=== PATIENT | female | born 1970 | race Caucasian/White ===

== ENCOUNTER 2017-02-11 10:57 | Outpatient (CLI) ==
[2015-08-24 20:14] VITALS: BMI 52.4
[2017-02-11 13:14] LABS: BASOPHILS # (AUTO) 0.1 K/uL (0-0.2); BASOPHILS % (AUTO) 0.6 % (0.0-3.0); EOSINOPHILS # (AUTO) 0.3 K/ul (0.0-0.7); EOSINOPHILS % (AUTO) 3.7 % (0.0-7.0); HEMATOCRIT 41.8 % (37.0-47.0); HEMOGLOBIN 13.1 g/dl (12.0-16.0); IMMATURE GRANULOCYTE % (AUTO) 0.4 % (0.0-5.0); LYMPHOCYTES # (AUTO) 1.8 K/uL (0.60-3.4); MEAN CORPUSCULAR HEMOGLOBIN 28.5 pg (27.0-31.0); MEAN CORPUSCULAR HGB CONC 31.3 (31.8-35.4); MEAN CORPUSCULAR VOLUME 91.1 fl (81.0-99.0); MONOCYTES # (AUTO) 0.6 K/uL (0.4-2.0); MONOCYTES % (AUTO) 6.8 (0-10); NEUTROPHILS # (AUTO) 5.6 K/ul (2.0-6.9); NEUTROPHILS % (AUTO) 66.5; PLATELET COUNT 282 10^3/uL (140-440); RED BLOOD COUNT 4.59 10^6/ul (4.20-5.40); WHITE BLOOD COUNT 8.38 K/ul (4.6-10.2)
[2017-02-11 13:15] LABS: BILIRUBIN,URINE Negative (NEGATIVE); KETONES,URINE Negative (NEGATIVE); LEUKOCYTE ESTERASE ,URINE Negative (NEGATIVE); NITRITE,URINE Negative (NEGATIVE); PROTEIN,URINE Negative (NEGATIVE); URINE, BLOOD Negative (NEGATIVE)
[2017-02-11 13:21] LABS: ADD URINE MICROSCOPIC YES
[2017-02-11 13:36] LABS: BACTERIA,URINE TRACE (NOT PRESENT)
[2017-02-11 13:51] LABS: ALBUMIN 3.3 g/dL (3.4-5.0); ALBUMIN/GLOBULIN RATIO 0.77; BILIRUBIN,TOTAL 0.68 mg/dL (0.00-1.20); BUN/CREATININE RATIO 8.69; CALCIUM 10.2 mg/dL (8.2-10.2); CHOL/HDL RATIO 3.6 (4.5-5.5); CREATININE 0.69 mg/dL (0.60-1.30); TOTAL PROTEIN 7.6 g/dL (6.4-8.2)
== END 2017-02-11 10:58 | disposition home or self-care (01) ==
LOC: LAB 10:57
PROVIDERS: ATTEND Nurse Practitioner Family
DX: R31.9 Hematuria, unspecified (principal); E78.5 Hyperlipidemia, unspecified; E53.8 Deficiency of other specified B group vitamins; E28.2 Polycystic ovarian syndrome; E03.9 Hypothyroidism, unspecified
CPT/HCPCS: 36415; 80053; 80061; 81001; 84443; 85025

== ENCOUNTER 2017-02-25 15:19 | Outpatient (CLI) ==
[2015-08-24 20:14] VITALS: BMI 52.4
[2017-02-25 16:15] LABS: BILIRUBIN,URINE 1+ (NEGATIVE); KETONES,URINE Trace (NEGATIVE); LEUKOCYTE ESTERASE ,URINE Negative (NEGATIVE); NITRITE,URINE Positive (NEGATIVE); PROTEIN,URINE 1+ (NEGATIVE); URINE, BLOOD Negative (NEGATIVE)
[2017-02-25 16:25] LABS: ADD URINE MICROSCOPIC YES
[2017-02-25 16:26] LABS: BACTERIA,URINE TRACE (NOT PRESENT)
== END 2017-02-25 15:20 | disposition home or self-care (01) ==
LOC: LAB 15:19
PROVIDERS: ATTEND Nurse Practitioner Family
DX: R35.0 Frequency of micturition (principal)
CPT/HCPCS: 81001; 87086

== ENCOUNTER 2017-03-06 06:21 | Emergency (ER) ==
[2017-03-06 06:29] VITALS: TEMP 99.8; BMI 54.8
[2017-03-06] MEDS ORDERED: TORADOL IM STA (06:44)
--- NOTE | 2017-03-06 06:48 | ED.PDOC ---
General ED Provider: Dr. MARIXA GAMINO Chief Complaint: Knee Pain/Injury Stated Complaint: Patient states she has had a sore left knee for one month. She has been using a knee brace. over the past week and especially starting last night the pain has gotten worse. Now describes it as aching.Has difficulty walking or bending the knee due to pain. Denies any obvious trauma. Pain is aching and is generalzied alittle worse on the back. unable to take Nsaids or Aspirin due to severe Gerd despite being on PPIs Time Seen by Physician: 06:45 Mode of Arrival: Walk-In Information Source: Patient, Family Exam Limitations: No limitations Primary Care Provider: HUNTER ESCALERA Nursing and Triage Documentation Reviewed and Agree: Yes Musculoskeletal Complaint Exam - Knee Pain Complaint/Exam Mechanism of Injury: Reports: No known trauma Onset/Duration: 1 month worse over the last week. Symptoms Are: Worse Onset of Pain: Reports: Weeks (4) Initial Severity: Moderate Current Severity: Severe Location: Reports: Diffuse Character: Reports: Aching, Throbbing Alleviating: Reports: None Aggravating: Reports: Movement, Weight bearing, Prolonged standing, Stairs Associated Signs and Symptoms: Denies: Swelling, Redness, Bruising, Fever, Weakness, Numbness, Tingling Able to Bear Weight: Yes Related History: Denies: Similar episode, Occupational injury Septic Arthritis Risk Factors: Denies: Extremes of age, IV drug abuse, Endocarditis, Imunosuppressed, Preexisting joint disease, Prosthesis Gout Risk Factors: Reports: >40 years old, Hyperlipidemia, Obesity. Denies: Male, Diabetes, HTN, Renal Disease, Psoriasis, PVD Related Surgical History: Denies: Right Knee, Left Knee, Other Orthopedic Surgery Knee Findings: Present: Tenderness, Limited range of motion. Absent: Swelling, Ecchymosis, Abnormal contour, Rotation, Ligamentous instability, Laceration, Erythema, Warmth, Blisters, Other joint pain, Foreign body, Effusion Tenderness: Present: Joint Camila Test Positive: No Joey Test Positive: No Limited Range of Motion: Present: Flexion, Degrees (60) Differential Diagnoses: Bursitis, Tendonitis, Closed Fracture, Sprain, Strain Review of Systems - Review Of Systems Constitutional: Reports: No symptoms Eyes: Reports: No symptoms Ears, Nose, Mouth, Throat: Reports: No symptoms Respiratory: Reports: No symptoms Cardiac: Reports: No symptoms GI: Reports: No symptoms : Reports: No symptoms Musculoskeletal: Reports: Joint pain Skin: Reports: No symptoms Neurological: Reports: Anxiety Endocrine: Reports: No symptoms Hematologic/Lymphatic: Reports: No symptoms All Other Systems: Reviewed and Negative Past Medical History - Past Medical History Endocrine: Reports: Hypothyroid, Dyslipidemia Cardiovascular: Reports: None Respiratory: Reports: None Hematological: Reports: None Gastrointestinal: Reports: GERD Genitourinary: Reports: None Neuro/Psych: Reports: Anxiety, Depression Musculoskeletal: Reports: None Cancer: Reports: None Last Menstrual Period: 3 weeks - Surgical History General Surgical History: Reports: Unknown - Family History Family History: Reports: Unknown - Social History Smoking Status: Never smoker Hx Substance Use: No Alcohol Screening: None - Immunizations Tetanus Shot up to Date: Yes Physical Exam - Physical Exam Appearance: Obese Pain Distress: Severe Neck: Supple Respiratory: Airway patent, Breath sounds clear, Breath sounds equal Cardiovascular: RRR, Pulses normal, No rub Musculoskeletal: No edema, Limited ROM Skin: Warm, Dry Neurological: Sensation intact, Alert, Oriented Psychiatric: Anxious Interpretation - Radiology Interpretation Radiology Interpretation By: Radiologist Radiology Results: Negative Exam Interpreted: Other (knee x ray ) Re-Evaluation - Re-Evaluation Time of Re-Evaluation: 07:38 Status: Improved Pain Level: 151/90 Critical Care Note - Critical Care Note Total Time (mins): 0 Course - Course Orders, Labs, Meds: Orders Category Date Time Status NIDA [ED NIDA WRAP] .ONCE EMERGENCY 03/06/17 06:45 Active Dexamethasone 4 mg/ml Inj [Decadron 4 mg/ml Sdv] MEDS 03/06/17 06:55 Discontinued 8 mg IM ONCE STA Ketorolac Tromethamine [Toradol] MEDS 03/06/17 06:44 Discontinued 60 mg IM ONCE STA KNEE, LEFT 4 VIEWS Stat RADS 03/06/17 06:45 Completed Medications Discontinued Medications Generic Name Dose Route Start Last Admin Trade Name Freq PRN Reason Stop Dose Admin Dexamethasone Sodium Phosphate 8 mg 03/06/17 06:55 03/06/17 07:14 Decadron 4 Mg/Ml Sdv IM 03/06/17 06:56 8 mg ONCE STA Administration Ketorolac Tromethamine 60 mg 03/06/17 06:44 03/06/17 06:53 Toradol IM 03/06/17 06:45 60 mg ONCE STA Administration Vital Signs: Temp Pulse Resp BP Pulse Ox 03/06/17 07:36 151/90 H 03/06/17 06:21 99.8 F H 97 H 20 176/117 H 96 Departure - Departure Time of Disposition: 07:38 Disposition: HOME SELF-CARE Discharge Problem: Knee pain Instructions: Knee Pain (ED), Arthralgia (ED) Condition: Fair Pt referred to PMD for follow-up: Yes Additional Instructions: Follow up with the clinic for Orthopedic referral and for an MRI Take medications as prescribed Use nida wrap for stability. Prescriptions: Methylprednisolone [Medrol Dosepak] 4 mg PO DIRECTED #1 pkg Tramadol HCl [Ultram] 50 mg PO Q6H PRN #25 tablet PRN Reason: Severe Pain Allergies/Adverse Reactions: Allergies bee venom protein (honey bee) Adverse Reaction (Verified 03/06/17 06:28) citalopram hydrobromide [From Celexa] Adverse Reaction (Verified 03/06/17 06:28) Home Medications: Ambulatory Orders Iron 18 mg PO DAILY 04/24/13 Metformin HCl [Glucophage] 500 mg PO BIDWM 04/24/13 Omeprazole Magnesium [Prilosec Otc] 20 mg PO DAILY 04/24/13 Cranberry Extract [Cranberry] 200 mg PO BID 01/26/17 Vitamin B Complex 1 each PO DAILY 01/26/17 Methylprednisolone [Medrol Dosepak] 4 mg PO DIRECTED #1 pkg 03/06/17 Tramadol HCl [Ultram] 50 mg PO Q6H PRN #25 tablet 03/06/17 Disposition Discussed With: Patient
[2017-03-06] MEDS ORDERED: DECADRON 4 MG/ML SDV IM STA (06:55)
--- NOTE | 2017-03-06 07:20 | DI ---
EXAM: Four views of the left knee HISTORY: Knee pain no trauma COMPARISON: None FINDINGS: There is no acute fracture or dislocation. Joint spaces and alignment are maintained. Devante y tricompartmental tiny osteophytes are present. The patella is seated within the trochlear groove. There is no sizeable knee joint effusion. Soft tissues are unremarkable. IMPRESSION: No acute osseous abnormality of the knee. Early minimal left knee osteoarthritis.
[2017-03-06 07:37] VITALS: BP 151/90
== END 2017-03-06 07:47 | disposition home or self-care (01) ==
LOC: ED 06:21
DX: M25.562 Pain in left knee (principal)
CPT/HCPCS: 96372; 99283

== ENCOUNTER 2017-06-07 12:57 | Outpatient (CLI) ==
[2017-06-07 13:22] LABS: BASOPHILS # (AUTO) 0.1 K/uL (0-0.2); BASOPHILS % (AUTO) 0.7 % (0.0-3.0); EOSINOPHILS # (AUTO) 0.4 K/ul (0.0-0.7); EOSINOPHILS % (AUTO) 4.6 % (0.0-7.0); HEMATOCRIT 42.1 % (37.0-47.0); HEMOGLOBIN 13.5 g/dl (12.0-16.0); IMMATURE GRANULOCYTE % (AUTO) 0.5 % (0.0-5.0); LYMPHOCYTES # (AUTO) 2.5 K/uL (0.60-3.4); LYMPHOCYTES % (AUTO) 28.5 (10.0-50.0); MEAN CORPUSCULAR HEMOGLOBIN 29.1 pg (27.0-31.0); MEAN CORPUSCULAR HGB CONC 32.1 (31.8-35.4); MEAN CORPUSCULAR VOLUME 90.7 fl (81.0-99.0); MONOCYTES # (AUTO) 0.8 K/uL (0.4-2.0); MONOCYTES % (AUTO) 8.6 (0-10); NEUTROPHILS # (AUTO) 5.1 K/ul (2.0-6.9); NEUTROPHILS % (AUTO) 57.1; PLATELET COUNT 271 10^3/uL (140-440); RED BLOOD COUNT 4.64 10^6/ul (4.20-5.40); WHITE BLOOD COUNT 8.87 K/ul (4.6-10.2)
[2017-06-07 14:02] LABS: ALBUMIN 3.3 g/dL (3.4-5.0); ALBUMIN/GLOBULIN RATIO 0.8; BILIRUBIN,TOTAL 0.35 mg/dL (0.00-1.20); BUN/CREATININE RATIO 9.21; CALCIUM 9.7 mg/dL (8.2-10.2); CHOL/HDL RATIO 3.4 (4.5-5.5); CREATININE 0.76 mg/dL (0.60-1.30); TOTAL PROTEIN 7.4 g/dL (6.4-8.2)
== END 2017-06-07 12:58 | disposition home or self-care (01) ==
LOC: LAB 12:57
PROVIDERS: ATTEND Nurse Practitioner Family
DX: E53.8 Deficiency of other specified B group vitamins (principal); E03.9 Hypothyroidism, unspecified; E78.5 Hyperlipidemia, unspecified; E28.2 Polycystic ovarian syndrome
CPT/HCPCS: 36415; 80053; 80061; 83036; 84439; 84443; 85025

== ENCOUNTER 2018-05-04 18:25 | Outpatient (CLI) | END 2018-05-04 18:26 | disposition home or self-care (01) | LOC: FCC-LAB 18:25 | PROVIDERS: ATTEND Family Medicine | DX: J02.9 Acute pharyngitis, unspecified (principal) | CPT/HCPCS: 87651 ==

== ENCOUNTER 2018-09-23 20:13 | Emergency (ER) ==
[2018-09-23 20:25] VITALS: BP 176/94; TEMP 100.3; BMI 61.0
--- NOTE | 2018-09-23 20:58 | ED.PDOC ---
General ED Provider: Dr. DAFNE FLANAGAN Chief Complaint: Urinary Problem Stated Complaint: few days of dysuria,frequency and chills.Preceeded by yeast infection.Denies any external skin or mucosal active yest or other process.Denies vag discharge. Time Seen by Physician: 20:15 Mode of Arrival: Walk-In Information Source: Patient Exam Limitations: No limitations Primary Care Provider: MARINA MEEKS Nursing and Triage Documentation Reviewed and Agree: Yes Does patient meet sepsis criteria?: No System Inflammatory Response Syndrome: Not Applicable Sepsis Protocol: For patient's 13 years and over: Temp is 96.8 and below OR 101 and greater Pulse >90 BPM Resp >20/minute Acutely Altered Mental Status Are patient's symptoms suggestive of a new infection, such as: -Pneumonia -Skin, Soft Tissue -Endocarditis -UTI -Bone, Joint Infection -Implantable Device -Acute Abdominal Infection -Wound Infection -Meningitis -Blood Stream Catheter Infection -Unknown Complaint Exam - UTI Female Complaint/Exam Onset/Duration: few days.Last iuse of antibiotics several month ago/more than 3/ . Symptoms Are: Still present Timing: Intermittent Initial Severity: Moderate Current Severity: Mild Location of Pain: Reports: Suprapubic Associated Signs and Symptoms: Reports: Chills Related History: Reports: Similar episode Related Surgical History: Reports: None CVA Tenderness: No Suprapubic Tenderness: Yes Differential Diagnoses: Bladder Dysfunction, Cystitis, Pyelonephritis, Other Review of Systems - Review Of Systems Constitutional: Reports: Chills Eyes: Reports: No symptoms Ears, Nose, Mouth, Throat: Reports: No symptoms Respiratory: Reports: No symptoms Cardiac: Reports: No symptoms GI: Reports: No symptoms : Reports: Burning, Dysuria, Frequency Musculoskeletal: Reports: No symptoms Skin: Reports: No symptoms Neurological: Reports: No symptoms Endocrine: Reports: No symptoms Hematologic/Lymphatic: Reports: No symptoms All Other Systems: Reviewed and Negative Past Medical History - Past Medical History Endocrine: Reports: Hypothyroid, Dyslipidemia Cardiovascular: Reports: None Respiratory: Reports: None Hematological: Reports: None Gastrointestinal: Reports: GERD Genitourinary: Reports: None Neuro/Psych: Reports: Anxiety, Depression Musculoskeletal: Reports: None Cancer: Reports: None Last Menstrual Period: 4 WEEKS AGO - Surgical History General Surgical History: Reports: Unknown - Family History Family History: Reports: Unknown - Social History Smoking Status: Never smoker Hx Substance Use: No Alcohol Screening: None - Immunizations Tetanus Shot up to Date: Yes Physical Exam - Physical Exam Appearance: Well-appearing, Obese Ill-appearing: None Pain Distress: Mild Eyes: FER ENT: Ears normal Neck: Supple Respiratory: Airway patent Cardiovascular: RRR, Tachycardia GI/: Soft Musculoskeletal: Normal strength Skin: Warm Neurological: Sensation intact Critical Care Note - Critical Care Note Total Time (mins): 0 Course - Course Hematology/Chemistry: 09/23/18 21:27 Orders, Labs, Meds: Lab Review 09/23/18 09/23/18 09/23/18 20:50 21:27 21:27 WBC 12.23 H RBC 4.48 Hgb 12.9 Hct 41.1 MCV 91.7 MCH 28.8 MCHC 31.4 L RDW Coeff of Gracy 13.8 Plt Count 239 Immature Gran % (Auto) 0.4 Neut % (Auto) 71.0 Lymph % (Auto) 18.7 [place] % (Auto) 6.9 Eos % (Auto) 2.5 Baso % (Auto) 0.5 Immature Gran # (Auto) 0.1 Neut # (Auto) 8.7 H Lymph # (Auto) 2.3 [place] # (Auto) 0.8 Eos # (Auto) 0.3 Baso # (Auto) 0.1 Lactic Acid 1.91 Urine Color [place] Urine Clarity Clear Urine pH 5.0 Ur Specific [place] 1.020 Urine Protein 2+ Urine Glucose (UA) Trace Urine Ketones 1+ Urine Blood Negative Urine Nitrite Positive Urine Bilirubin 1+ Urine Urobilinogen 2.0 Ur Leukocyte Esterase 3+ Urine Microscopic RBC 0-2 Urine Microscopic WBC 0-2 Ur Squamous Epith Cells 2-5 Urine Bacteria Trace Orders Category Date Time Status CBC W/ AUTO DIFF Stat LAB 09/23/18 21:27 Completed LACTIC ACID Stat LAB 09/23/18 21:27 Completed URINALYSIS C & S IF INDICATED Stat LAB 09/23/18 20:50 Completed Ceftriaxone Sodium [Rocephin] MEDS 09/23/18 21:37 Discontinued 1 gm IM ONCE STA Lidocaine HCl/Pf [Lidocaine HCl 1% Sdv] MEDS 09/23/18 21:37 Discontinued 2.1 ml IM ONCE STA Medications Discontinued Medications Generic Name Dose Route Start Last Admin Trade Name Freq PRN Reason Stop Dose Admin Ceftriaxone Sodium 1 gm 09/23/18 21:37 09/23/18 21:55 Rocephin IM 09/23/18 21:38 1 gm ONCE STA Administration Lidocaine HCl 2.1 ml 09/23/18 21:37 09/23/18 21:56 Lidocaine Hcl 1% Sdv IM 09/23/18 21:38 2.1 ml ONCE STA Administration Vital Signs: Temp Pulse Resp BP Pulse Ox 09/23/18 20:13 100.3 F H 91 H 24 176/94 H 95 Departure - Departure Time of Disposition: 22:05 Disposition: HOME SELF-CARE Discharge Problem: Urinary tract infection Condition: Good Pt referred to PMD for follow-up: Yes (follow PCO of choice prn) IPMP verified?: No Allergies/Adverse Reactions: Allergies bee venom protein (honey bee) Adverse Reaction (Verified 03/06/17 06:28) citalopram hydrobromide [From Celexa] Adverse Reaction (Verified 03/06/17 06:28) WASPS Adverse Reaction (Uncoded 09/23/18 20:24) Home Medications: Ambulatory Orders Metformin HCl [Glucophage] 500 mg PO BIDWM 04/24/13 Omeprazole Magnesium [Prilosec Otc] 20 mg PO DAILY 04/24/13 Cranberry Extract [Cranberry] 200 mg PO BID 01/26/17 Albuterol Sulfate [Proair Hfa] 2 puff IH Q4H PRN 09/23/18 Calcium Carb/Magnesium Oxid/D3 [Calcium Magnesium + D Tablet] 1 each PO DAILY Cholecalciferol (Vitamin D3) [Vitamin D3] 5,000 unit PO DAILY 09/23/18 Cranberry Conc/Ascorbic Acid [Cvs Super Cranberry Softgel] 1 each PO BID Ferrous Sulfate [Iron] 325 mg PO DAILY 09/23/18 Folic Acid/Vit B Complex and C [Super B-Complex Folic-Vit C Tb] 400 mcg PO DAILY 09/23/18 Disposition Discussed With: Patient
[2018-09-23] MEDS ORDERED: ROCEPHIN IM STA (21:37)
[2018-09-23] MEDS ORDERED: LIDOCAINE HCL 1% SDV IM STA (21:37)
== END 2018-09-23 22:22 | disposition home or self-care (01) ==
LOC: ED 20:13
DX: N39.0 Urinary tract infection, site not specified (principal); N30.90 Cystitis, unspecified without hematuria; E03.9 Hypothyroidism, unspecified; E78.5 Hyperlipidemia, unspecified; R00.0 Tachycardia, unspecified; Z79.899 Other long term (current) drug therapy
CPT/HCPCS: 36415; 81001; 83605; 85025; 96372; 99283

== ENCOUNTER 2018-10-12 11:33 | Outpatient (CLI) | END 2018-10-12 11:34 | disposition home or self-care (01) | LOC: RHC-LAB 11:33 → FCC-LAB 11:34 | PROVIDERS: ATTEND Family Medicine | DX: E78.5 Hyperlipidemia, unspecified (principal); E03.9 Hypothyroidism, unspecified; I10 Essential (primary) hypertension; E66.9 Obesity, unspecified; E55.9 Vitamin D deficiency, unspecified | CPT/HCPCS: 36415; 80053; 80061; 82306; 84443; 85025 ==

== ENCOUNTER 2018-12-12 17:03 | Outpatient (CLI) | END 2018-12-12 17:04 | disposition home or self-care (01) | LOC: RHC-LAB 17:03 → FCC-LAB 17:04 | PROVIDERS: ATTEND Family Medicine | DX: R73.09 Other abnormal glucose (principal); D53.8 Other specified nutritional anemias | CPT/HCPCS: 36415; 82607; 83037 ==

== ENCOUNTER 2019-06-13 05:49 | Observation (INO) ==
[2019-06-13] MEDS ORDERED: DUONEB NEB STA (06:25)
--- NOTE | 2019-06-13 06:37 | ED.PDOC ---
General <MARIXA GAMINO MD - Last Filed: 07/15/19 06:13> ED Provider: Dr. MARIXA GAMINO Chief Complaint: Cough Stated Complaint: Patient comes to the ER with a one week history of cough. States feels like when she has bronchitis Every year. Has a history of asthma. Denies any Smoking. Has pain on the chest wall from coughing. Time Seen by Physician: 06:20 Mode of Arrival: Walk-In Information Source: Patient Primary Care Provider: MARINA MEEKS MD Nursing and Triage Documentation Reviewed and Agree: Yes Does patient meet sepsis criteria?: No System Inflammatory Response Syndrome: Not Applicable Sepsis Protocol: For patient's 13 years and over: Temp is 96.8 and below OR 101 and greater Pulse >90 BPM Resp >20/minute Acutely Altered Mental Status Are patient's symptoms suggestive of a new infection, such as: -Pneumonia -Skin, Soft Tissue -Endocarditis -UTI -Bone, Joint Infection -Implantable Device -Acute Abdominal Infection -Wound Infection -Meningitis -Blood Stream Catheter Infection -Unknown Review of Systems <MARIXA GAMINO MD - Last Filed: 07/15/19 06:13> Review Of Systems Constitutional: Reports No symptoms Eyes: Reports No symptoms Ears, Nose, Mouth, Throat: Reports No symptoms Respiratory: Reports Cough, Short of air and Wheezing Cardiac: Reports Chest pain (with cough only ) GI: Reports No symptoms : Reports No symptoms Musculoskeletal: Reports No symptoms Skin: Reports No symptoms Neurological: Reports No symptoms Endocrine: Reports No symptoms Hematologic/Lymphatic: Reports No symptoms All Other Systems: Reviewed and Negative PFSH <MARIXA GAMINO MD - Last Filed: 07/15/19 06:13> Medical History (Updated 06/13/19 @ 11:24 by DAVIN OSCAR RN) Asthma (Acute) Bronchitis (Acute) Gastroesophageal reflux disease Hyperlipidemia Hypothyroidism Polycystic ovaries Sleep apnea Family History (Updated 06/13/19 @ 11:28 by DAVIN OSCAR RN) Mother Depression Hypertension Father Depression Grandfather/Grandmother Chronic mental illness Depression PATERNAL GRANDMOTHER Cancer of lung Other Bipolar 1 disorder Polycystic ovarian disease Sleep apnea Suicide Social History (Updated 06/13/19 @ 11:30 by DAVIN OSCAR RN) Smoking and tobacco status: Unknown if ever smoked Passive smoking exposure: No Female Reproductive History Menstrual Hx Hysterectomy: No Hx Tubal Ligation: No Physical Exam <MARIXA GAMINO MD - Last Filed: 07/15/19 06:13> Physical Exam Appearance: Obese Ill-appearing: Moderate Pain Distress: Mild Eyes: FER, EOMI and Conjunctiva clear ENT: Ears normal and Nose normal Neck: Supple Respiratory: Wheezes Cardiovascular: RRR, Pulses normal and No rub Musculoskeletal: Normal strength and ROM intact Skin: Warm and Dry Neurological: Sensation intact, Motor intact, Alert and Oriented Psychiatric: Anxious <VALERIO MILLS MD - Last Filed: 06/13/19 10:32> Physical Exam GI/: Soft Interpretation <MARIXA GAMINO MD - Last Filed: 07/15/19 06:13> Scientific Writer Rate: Normal Rhythm: Sinus EKG Interpretation Time of EKG #1: 06:47 Rate: Normal Rhythm: Sinus Ectopy: None Kennard: NL Interpretation: unable to determine anterior infarct <VALERIO MILLS MD - Last Filed: 06/13/19 10:32> Re-Evaluation Time of Re-Evaluation: 07:00 Status: Improved Vital Signs Stable: Yes Pain Level: 0 Appearance: NAD Lungs: Clear Skin: Warm and Dry Neuro: Alert and Oriented X3 CV: RRR Additional Comments: no resp, issues pt comfortable Re-Evaluation Time of Re-Evaluation: 10:30 Status: Improved Vital Signs Stable: Yes Pain Level: 0 Appearance: NAD Skin: Warm and Dry Neuro: Alert and Oriented X3 CV: RRR <VALERIO MILLS MD - Last Filed: 06/13/19 10:32> Case Discussed Physician Notified: [email or web address] Time of Notification: 10:31 (admitt) Critical Care Note <MARIXA GAMINO MD - Last Filed: 07/15/19 06:13> Critical Care Note Total Time (mins): 30 Course <MARIXA GAMINO MD - Last Filed: 07/15/19 06:13> Course Hematology/Chemistry: 06/15/19 05:04 06/15/19 05:04 Orders, Labs, Meds: Lab Review 06/13/19 06/13/19 06/13/19 06:25 06:40 06:40 WBC 13.50 H RBC 4.47 Hgb 13.0 Hct 41.8 MCV 93.5 MCH 29.1 MCHC 31.1 L RDW Coeff of Gracy 14.0 Plt Count 333 Immature Gran % (Auto) 0.7 Neut % (Auto) 65.8 Lymph % (Auto) 20.0 [place] % (Auto) 7.4 Eos % (Auto) 5.4 Baso % (Auto) 0.7 Immature Gran # (Auto) 0.1 Neut # (Auto) 8.9 H Lymph # (Auto) 2.7 [place] # (Auto) 1.0 Eos # (Auto) 0.7 Baso # (Auto) 0.1 Puncture Site L brach O2 Saturation 88.0 L ABG pH 7.463 H ABG pCO2 38.0 ABG pO2 51.0 L* ABG HCO3 27.2 H ABG Total CO2 28 ABG Base Excess 3 H [place] Test + FiO2 % 21.0 Sodium 136.9 Potassium 3.78 Chloride 97.5 L Carbon Dioxide 32.2 H Anion Gap 10.98 BUN 9.9 Creatinine 0.90 Estimated GFR (MDRD) 67.00 BUN/Creatinine Ratio 11.00 Glucose 146.4 H Insulin Level Lactic Acid Calcium 9.68 Total Bilirubin 0.57 AST 23.0 ALT 16.7 Alkaline Phosphatase 116.4 Total Protein 8.06 Albumin 4.10 Globulin 3.96 Albumin/Globulin Ratio 1.03 Procalcitonin Influenza Type A Ab Influenza Type B Ab 06/13/19 06/13/19 06/13/19 06:40 06:40 06:40 WBC RBC Hgb Hct MCV MCH MCHC RDW Coeff of Gracy Plt Count Immature Gran % (Auto) Neut % (Auto) Lymph % (Auto) [place] % (Auto) Eos % (Auto) Baso % (Auto) Immature Gran # (Auto) Neut # (Auto) Lymph # (Auto) [place] # (Auto) Eos # (Auto) Baso # (Auto) Puncture Site O2 Saturation ABG pH ABG pCO2 ABG pO2 ABG HCO3 ABG Total CO2 ABG Base Excess [place] Test FiO2 % Sodium Potassium Chloride Carbon Dioxide Anion Gap BUN Creatinine Estimated GFR (MDRD) BUN/Creatinine Ratio Glucose Insulin Level 65.8 H Lactic Acid 2.09 Calcium Total Bilirubin AST ALT Alkaline Phosphatase Total Protein Albumin Globulin Albumin/Globulin Ratio Procalcitonin < 0.05 Influenza Type A Ab Influenza Type B Ab 06/13/19 06:40 WBC RBC Hgb Hct MCV MCH MCHC RDW Coeff of Gracy Plt Count Immature Gran % (Auto) Neut % (Auto) Lymph % (Auto) [place] % (Auto) Eos % (Auto) Baso % (Auto) Immature Gran # (Auto) Neut # (Auto) Lymph # (Auto) [place] # (Auto) Eos # (Auto) Baso # (Auto) Puncture Site O2 Saturation ABG pH ABG pCO2 ABG pO2 ABG HCO3 ABG Total CO2 ABG Base Excess [place] Test FiO2 % Sodium Potassium Chloride Carbon Dioxide Anion Gap BUN Creatinine Estimated GFR (MDRD) BUN/Creatinine Ratio Glucose Insulin Level Lactic Acid Calcium Total Bilirubin AST ALT Alkaline Phosphatase Total Protein Albumin Globulin Albumin/Globulin Ratio Procalcitonin Influenza Type A Ab 1:8 H Influenza Type B Ab 1:8 H Orders Category Date Time Status ADMIT OBSERVATION [PLACE PATIENT OBSERVATION] .TO ADMISSION 06/13/19 10:41 Active MEDSURG (MONITORED BED) ABG DRAW REQUEST Stat CARDIO 06/13/19 06:25 Completed EKG-(ED ONLY) Stat CARDIO 06/13/19 06:44 Completed NEBULIZER TREATMENT Stat CARDIO 06/13/19 06:26 Completed ACTIVITY .BR with BRP CARE 06/13/19 10:36 Active BLOOD GLUCOSE MONITORING ACHS CARE 06/13/19 10:36 Active GIVE HS SNACK 2100 CARE 06/13/19 10:38 Active INTAKE & OUTPUT Q8HR CARE 06/13/19 10:37 Active NPO REMINDER: IMAGING ONCE CARE 06/13/19 07:45 Completed TELEMETRY MONITORING TELE CARE 06/13/19 10:41 Active VITAL SIGNS Q4HR CARE 06/13/19 10:36 Active ADA 1800 J LUIS. DIET DIETARY 06/13/19 Lunch Completed HS SNACK DIETARY 06/13/19 Dinner Completed ED APPLY O2 .ONCE EMERGENCY 06/13/19 06:26 Completed ED IV/MEDIPORT/POWERPORT .ONCE EMERGENCY 06/13/19 06:25 Active ABG Stat LAB 06/13/19 06:25 Completed BLOOD CULTURE (ED ONLY) Stat LAB 06/13/19 06:40 Completed CBC W/ AUTO DIFF DAILY@0600 LAB 06/14/19 05:45 Completed CBC W/ AUTO DIFF DAILY@0600 LAB 06/15/19 05:04 Completed CBC W/ AUTO DIFF Stat LAB 06/13/19 06:40 Completed CMP [COMPREHENSIVE METABOLIC PANEL] Stat LAB 06/13/19 06:40 Completed COMPREHENSIVE METABOLIC PANEL DAILY@0600 LAB 06/14/19 05:45 Completed COMPREHENSIVE METABOLIC PANEL DAILY@0600 LAB 06/15/19 05:04 Completed LACTIC ACID Stat LAB 06/13/19 06:40 Completed PROCALCITONIN Stat LAB 06/13/19 06:40 Completed 0.9 % Sodium Chloride [Saline Flush] MEDS 06/13/19 06:25 Discontinued 1 syr IVF PRN PRN Albuterol Sulfate [Proair Hfa] MEDS 06/13/19 10:33 Discontinued 2 puff IH Q4H PRN Ceftriaxone/D5w 1 gm Premix [Rocephin 1 gm/50 ml D5w] MEDS 06/13/19 11:30 Discontinued 1 gm in 50 ml IV DAILY Gabapentin [Neurontin] MEDS 06/13/19 15:00 Discontinued 300 mg PO TID Guaifenesin [Mucinex] MEDS 06/13/19 10:33 Discontinued 1,200 mg PO BID PRN Ipratropium/Albuterol Neb [Duoneb] MEDS 06/13/19 06:25 Discontinued 3 ml NEB ONCE STA Lisinopril [Zestril] MEDS 06/14/19 09:00 Discontinued 5 mg PO DAILY Methylprednisolone Sod Succ/Pf [Solu-Medrol 125 mg] MEDS 06/13/19 06:45 Discontinued 125 mg IVP ONCE STA Oxybutynin Chloride [Ditropan Xl] MEDS 06/13/19 11:00 Discontinued 10 mg PO DAILY Paroxetine HCl [Paxil] MEDS 06/14/19 09:00 Discontinued 40 mg PO DAILY Simvastatin [Zocor] MEDS 06/14/19 17:00 Discontinued 40 mg PO QPM Sodium Chloride 0.9% [Sodium Chloride] 1,000 ml MEDS 06/13/19 11:00 Discontinued IV 75 mls/hr Sodium Chloride 0.9% [Sodium Chloride] 1,000 ml MEDS 06/13/19 07:46 Discontinued IV BOLUS CHEST, 2 VIEWS PA & LAT Stat RADS 06/13/19 06:[address] CHEST PE PROTOCOL Stat RADS 06/13/19 07:45 Completed Medications Discontinued Medications Generic Name Dose Route Start Last Admin Trade Name Freq PRN Reason Stop Dose Admin Albuterol Sulfate 2 puff 06/13/19 10:33 Proair Hfa IH Q4H PRN Bronchospasm Albuterol/Ipratropium 3 ml 06/13/19 06:25 06/13/19 06:51 Duoneb NEB 06/13/19 06:26 3 ml ONCE STA Administration Budesonide 0.5 mg 06/14/19 18:00 06/17/19 04:50 Pulmicort 0.5 Mg/2 Ml NEB 0.5 mg RTBID ARSLAN Administration Ferrous Sulfate 324 mg 06/14/19 06:30 06/17/19 06:06 Ferrous Sulfate PO 324 mg QDAC ARSLAN Administration Gabapentin 300 mg 06/13/19 15:00 06/17/19 08:42 Neurontin PO 300 mg TID ARSLAN Administration Guaifenesin 1,200 mg 06/13/19 10:33 Mucinex PO BID PRN Cough Sodium Chloride 1,000 mls @ 250 mls/hr 06/13/19 07:46 06/13/19 08:18 Sodium Chloride IV 06/13/19 11:45 250 mls/hr BOLUS STA Administration Sodium Chloride 1,000 mls @ 75 mls/hr 06/13/19 11:00 06/16/19 19:40 Sodium Chloride IV Not Given .[id number] ARSLAN CEFTRIAXONE/D5W 1 GM PREMIX 1 gm in 50 mls @ 75 mls/hr 06/13/19 11:30 06/16/19 09:41 Rocephin 1 Gm/50 Ml D5w IV 06/16/19 11:29 75 mls/hr DAILY ARSLAN Administration CEFTRIAXONE/D5W 1 GM PREMIX 1 gm in 50 mls @ 75 mls/hr 06/17/19 09:00 06/17/19 08:42 Rocephin 1 Gm/50 Ml D5w IV 06/20/19 08:59 75 mls/hr DAILY ARSLAN Administration Levothyroxine Sodium 300 mcg 06/14/19 06:30 06/17/19 06:12 Synthroid PO 300 mcg QDAC ARSLAN Administration Lisinopril 5 mg 06/14/19 09:00 06/17/19 08:42 Zestril PO 5 mg DAILY ARSLAN Administration Methylprednisolone Sodium Succinate 125 mg 06/13/19 06:45 06/13/19 07:22 Solu-Medrol 125 Mg IVP 06/13/19 06:46 125 mg ONCE STA Administration Omeprazole 20 mg 06/14/19 06:30 06/17/19 06:06 Prilosec PO 20 mg QDAC ARSLAN Administration Oxybutynin Chloride 10 mg 06/13/19 11:00 06/13/19 11:47 Ditropan Xl PO 10 mg DAILY ARSLAN Administration Oxybutynin Chloride 10 mg 06/14/19 21:00 06/16/19 20:38 Ditropan Xl PO 10 mg BEDTIME ARSLAN Administration Paroxetine HCl 40 mg 06/14/19 09:00 Paxil PO DAILY ARSLAN Paroxetine HCl 40 mg 06/14/19 01:30 06/16/19 20:38 Paxil PO 40 mg BEDTIME ARSLAN Administration Simvastatin 40 mg 06/14/19 17:00 Zocor PO QPM ARSLAN Simvastatin 40 mg 06/14/19 21:00 06/16/19 20:38 Zocor PO 40 mg BEDTIME ARSLAN Administration Sodium Chloride 1 syr 06/13/19 06:25 06/13/19 07:21 Saline Flush IVF 1 syr PRN PRN Administration To flush IV Sodium Chloride 1 syr 06/15/19 05:45 06/17/19 06:06 Saline Flush IVF 1 syr Q8HR ARSLAN Administration Vital Signs: Temp Pulse Resp BP Pulse Ox 06/13/19 05:50 99.4 F 98 H 28 H 160/97 H 90 L <VALERIO MILLS MD - Last Filed: 06/13/19 10:32> Course Orders, Labs, Meds: Lab Review 06/13/19 06/13/19 06/13/19 06:25 06:40 06:40 WBC 13.50 H RBC 4.47 Hgb 13.0 Hct 41.8 MCV 93.5 MCH 29.1 MCHC 31.1 L RDW Coeff of Gracy 14.0 Plt Count 333 Immature Gran % (Auto) 0.7 Neut % (Auto) 65.8 Lymph % (Auto) 20.0 [place] % (Auto) 7.4 Eos % (Auto) 5.4 Baso % (Auto) 0.7 Immature Gran # (Auto) 0.1 Neut # (Auto) 8.9 H Lymph # (Auto) 2.7 [place] # (Auto) 1.0 Eos # (Auto) 0.7 Baso # (Auto) 0.1 Puncture Site L brach O2 Saturation 88.0 L ABG pH 7.463 H ABG pCO2 38.0 ABG pO2 51.0 L* ABG HCO3 27.2 H ABG Total CO2 28 ABG Base Excess 3 H [place] Test + FiO2 % 21.0 Sodium 136.9 Potassium 3.78 Chloride 97.5 L Carbon Dioxide 32.2 H Anion Gap 10.98 BUN 9.9 Creatinine 0.90 Estimated GFR (MDRD) 67.00 BUN/Creatinine Ratio 11.00 Glucose 146.4 H Insulin Level Lactic Acid Calcium 9.68 Total Bilirubin 0.57 AST 23.0 ALT 16.7 Alkaline Phosphatase 116.4 Total Protein 8.06 Albumin 4.10 Globulin 3.96 Albumin/Globulin Ratio 1.03 Procalcitonin Influenza Type A Ab Influenza Type B Ab 06/13/19 06/13/19 06/13/19 06:40 06:40 06:40 WBC RBC Hgb Hct MCV MCH MCHC RDW Coeff of Gracy Plt Count Immature Gran % (Auto) Neut % (Auto) Lymph % (Auto) [place] % (Auto) Eos % (Auto) Baso % (Auto) Immature Gran # (Auto) Neut # (Auto) Lymph # (Auto) [place] # (Auto) Eos # (Auto) Baso # (Auto) Puncture Site O2 Saturation ABG pH ABG pCO2 ABG pO2 ABG HCO3 ABG Total CO2 ABG Base Excess [place] Test FiO2 % Sodium Potassium Chloride Carbon Dioxide Anion Gap BUN Creatinine Estimated GFR (MDRD) BUN/Creatinine Ratio Glucose Insulin Level 65.8 H Lactic Acid 2.09 Calcium Total Bilirubin AST ALT Alkaline Phosphatase Total Protein Albumin Globulin Albumin/Globulin Ratio Procalcitonin < 0.05 Influenza Type A Ab Influenza Type B Ab 06/13/19 06:40 WBC RBC Hgb Hct MCV MCH MCHC RDW Coeff of Gracy Plt Count Immature Gran % (Auto) Neut % (Auto) Lymph % (Auto) [place] % (Auto) Eos % (Auto) Baso % (Auto) Immature Gran # (Auto) Neut # (Auto) Lymph # (Auto) [place] # (Auto) Eos # (Auto) Baso # (Auto) Puncture Site O2 Saturation ABG pH ABG pCO2 ABG pO2 ABG HCO3 ABG Total CO2 ABG Base Excess [place] Test FiO2 % Sodium Potassium Chloride Carbon Dioxide Anion Gap BUN Creatinine Estimated GFR (MDRD) BUN/Creatinine Ratio Glucose Insulin Level Lactic Acid Calcium Total Bilirubin AST ALT Alkaline Phosphatase Total Protein Albumin Globulin Albumin/Globulin Ratio Procalcitonin Influenza Type A Ab 1:8 H Influenza Type B Ab 1:8 H Orders Category Date Time Status ADMIT OBSERVATION [PLACE PATIENT OBSERVATION] .TO ADMISSION 06/13/19 10:41 Active MEDSURG (MONITORED BED) ABG DRAW REQUEST Stat CARDIO 06/13/19 06:25 Completed EKG-(ED ONLY) Stat CARDIO 06/13/19 06:44 Completed NEBULIZER TREATMENT Stat CARDIO 06/13/19 06:26 Completed ACTIVITY .BR with BRP CARE 06/13/19 10:36 Active BLOOD GLUCOSE MONITORING ACHS CARE 06/13/19 10:36 Active GIVE HS SNACK 2100 CARE 06/13/19 10:38 Active INTAKE & OUTPUT Q8HR CARE 06/13/19 10:37 Active NPO REMINDER: IMAGING ONCE CARE 06/13/19 07:45 Completed TELEMETRY MONITORING TELE CARE 06/13/19 10:41 Active VITAL SIGNS Q4HR CARE 06/13/19 10:36 Active ADA 1800 J LUIS. DIET DIETARY 06/13/19 Lunch Completed HS SNACK DIETARY 06/13/19 Dinner Completed ED APPLY O2 .ONCE EMERGENCY 06/13/19 06:26 Completed ED IV/MEDIPORT/POWERPORT .ONCE EMERGENCY 06/13/19 06:25 Active ABG Stat LAB 06/13/19 06:25 Completed BLOOD CULTURE (ED ONLY) Stat LAB 06/13/19 06:40 Completed CBC W/ AUTO DIFF DAILY@0600 LAB 06/14/19 05:45 Completed CBC W/ AUTO DIFF DAILY@0600 LAB 06/15/19 05:04 Completed CBC W/ AUTO DIFF Stat LAB 06/13/19 06:40 Completed CMP [COMPREHENSIVE METABOLIC PANEL] Stat LAB 06/13/19 06:40 Completed COMPREHENSIVE METABOLIC PANEL DAILY@0600 LAB 06/14/19 05:45 Completed COMPREHENSIVE METABOLIC PANEL DAILY@0600 LAB 06/15/19 05:04 Completed LACTIC ACID Stat LAB 06/13/19 06:40 Completed PROCALCITONIN Stat LAB 06/13/19 06:40 Completed 0.9 % Sodium Chloride [Saline Flush] MEDS 06/13/19 06:25 Discontinued 1 syr IVF PRN PRN Albuterol Sulfate [Proair Hfa] MEDS 06/13/19 10:33 Discontinued 2 puff IH Q4H PRN Ceftriaxone/D5w 1 gm Premix [Rocephin 1 gm/50 ml D5w] MEDS 06/13/19 11:30 Discontinued 1 gm in 50 ml IV DAILY Gabapentin [Neurontin] MEDS 06/13/19 15:00 Discontinued 300 mg PO TID Guaifenesin [Mucinex] MEDS 06/13/19 10:33 Discontinued 1,200 mg PO BID PRN Ipratropium/Albuterol Neb [Duoneb] MEDS 06/13/19 06:25 Discontinued 3 ml NEB ONCE STA Lisinopril [Zestril] MEDS 06/14/19 09:00 Discontinued 5 mg PO DAILY Methylprednisolone Sod Succ/Pf [Solu-Medrol 125 mg] MEDS 06/13/19 06:45 Discontinued 125 mg IVP ONCE STA Oxybutynin Chloride [Ditropan Xl] MEDS 06/13/19 11:00 Discontinued 10 mg PO DAILY Paroxetine HCl [Paxil] MEDS 06/14/19 09:00 Discontinued 40 mg PO DAILY Simvastatin [Zocor] MEDS 06/14/19 17:00 Discontinued 40 mg PO QPM Sodium Chloride 0.9% [Sodium Chloride] 1,000 ml MEDS 06/13/19 11:00 Discontinued IV 75 mls/hr Sodium Chloride 0.9% [Sodium Chloride] 1,000 ml MEDS 06/13/19 07:46 Discontinued IV BOLUS CHEST, 2 VIEWS PA & LAT Stat RADS 06/13/19 06:[address] CHEST PE PROTOCOL Stat RADS 06/13/19 07:45 Completed Medications Discontinued Medications Generic Name Dose Route Start Last Admin Trade Name Freq PRN Reason Stop Dose Admin Albuterol Sulfate 2 puff 06/13/19 10:33 Proair Hfa IH Q4H PRN Bronchospasm Albuterol/Ipratropium 3 ml 06/13/19 06:25 06/13/19 06:51 Duoneb NEB 06/13/19 06:26 3 ml ONCE STA Administration Budesonide 0.5 mg 06/14/19 18:00 06/17/19 04:50 Pulmicort 0.5 Mg/2 Ml NEB 0.5 mg RTBID ARSLAN Administration Ferrous Sulfate 324 mg 06/14/19 06:30 06/17/19 06:06 Ferrous Sulfate PO 324 mg QDAC ARSLAN Administration Gabapentin 300 mg 06/13/19 15:00 06/17/19 08:42 Neurontin PO 300 mg TID ARSLAN Administration Guaifenesin 1,200 mg 06/13/19 10:33 Mucinex PO BID PRN Cough Sodium Chloride 1,000 mls @ 250 mls/hr 06/13/19 07:46 06/13/19 08:18 Sodium Chloride IV 06/13/19 11:45 250 mls/hr BOLUS STA Administration Sodium Chloride 1,000 mls @ 75 mls/hr 06/13/19 11:00 06/16/19 19:40 Sodium Chloride IV Not Given .[id number] ARSLAN CEFTRIAXONE/D5W 1 GM PREMIX 1 gm in 50 mls @ 75 mls/hr 06/13/19 11:30 06/16/19 09:41 Rocephin 1 Gm/50 Ml D5w IV 06/16/19 11:29 75 mls/hr DAILY ARSLAN Administration CEFTRIAXONE/D5W 1 GM PREMIX 1 gm in 50 mls @ 75 mls/hr 06/17/19 09:00 06/17/19 08:42 Rocephin 1 Gm/50 Ml D5w IV 06/20/19 08:59 75 mls/hr DAILY ARSLAN Administration Levothyroxine Sodium 300 mcg 06/14/19 06:30 06/17/19 06:12 Synthroid PO 300 mcg QDAC ARSLAN Administration Lisinopril 5 mg 06/14/19 09:00 06/17/19 08:42 Zestril PO 5 mg DAILY ARSLAN Administration Methylprednisolone Sodium Succinate 125 mg 06/13/19 06:45 06/13/19 07:22 Solu-Medrol 125 Mg IVP 06/13/19 06:46 125 mg ONCE STA Administration Omeprazole 20 mg 06/14/19 06:30 06/17/19 06:06 Prilosec PO 20 mg QDAC ARSLAN Administration Oxybutynin Chloride 10 mg 06/13/19 11:00 06/13/19 11:47 Ditropan Xl PO 10 mg DAILY ARSLAN Administration Oxybutynin Chloride 10 mg 06/14/19 21:00 06/16/19 20:38 Ditropan Xl PO 10 mg BEDTIME ARSLAN Administration Paroxetine HCl 40 mg 06/14/19 09:00 Paxil PO DAILY ARSLAN Paroxetine HCl 40 mg 06/14/19 01:30 06/16/19 20:38 Paxil PO 40 mg BEDTIME ARSLAN Administration Simvastatin 40 mg 06/14/19 17:00 Zocor PO QPM ARSLAN Simvastatin 40 mg 06/14/19 21:00 06/16/19 20:38 Zocor PO 40 mg BEDTIME ARSLAN Administration Sodium Chloride 1 syr 06/13/19 06:25 06/13/19 07:21 Saline Flush IVF 1 syr PRN PRN Administration To flush IV Sodium Chloride 1 syr 06/15/19 05:45 06/17/19 06:06 Saline Flush IVF 1 syr Q8HR ARSLAN Administration Vital Signs: Temp Pulse Resp BP Pulse Ox 06/13/19 05:50 99.4 F 98 H 28 H 160/97 H 90 L Discharge Plan Discharge Patient Disposition: ADMITTED INPATIENT Discharge Problem: Cough, Acute asthma Instructions: Budesonide (By breathing), Asthma (DC), How to Use a Metered-Dose Inhaler (DC) Additional Instructions: YOU ARE BEING DISCHARGED TODAY BY DR. SANFORD NEW MEDICATIONS: PULMICORT INHALER: 2 PUFFS TWO TIMES A DAY. RINSE MOUTH AFTER EACH USE TO PREVENT THRUSH. RESUME ALL OTHER MEDICATIONS. ELEVATED THE LEGS. TRY TO AVOID CARBOHYDRATES. GO TO YOUR NEAREST EMERGENCY DEPT. IF YOU BECOME SOA OR HAVE ANY DIFFICULTIES. ED Provider: VALERIO MILLS Condition: Good Discharge Date/Time: 06/13/19 11:08
[2019-06-13 06:45] LABS: HEMATOCRIT 41.8 % (37.0-47.0)
[2019-06-13] MEDS ORDERED: SOLU-MEDROL 125 MG IVP STA (06:45)
--- NOTE | 2019-06-13 07:10 | DI ---
EXAM: Chest two views HISTORY: Shortness of breath FINDINGS: Compared to 09/02/2007. Prominent heart size. Mild central and basilar infiltrates are p resent without lobar consolidation or visible pleural fluid. No pneumothorax. IMPRESSION: 1. Infiltrates bilaterally as described which can be consistent with mild pulmonary vascular congest ion and interstitial edema or pneumonia. Correlate clinically.
[2019-06-13] MEDS ORDERED: SODIUM CHLORIDE 1,000 ML IV STA (07:46)
--- NOTE | 2019-06-13 09:16 | CT ---
EXAM: CTA chest with contrast HISTORY: Poor arterial blood gas, rule out PE TECHNIQUE: Multi-slice transaxial helical PE protocol. Multiplanar MIP and 3D volume rendered image s are provided. COMPARISON: None FINDINGS: Normal thyroid. Mild cardiomegaly. The pulmonary trunk measures 163 HU. The exam is markedly limite d for evaluation of pulmonary emboli secondary to timing of contrast bolus and multifocal contrast mi angela artifact. No evidence of main pulmonary artery filling defect. Lobar and segmental vessels bakari ot be evaluated. No pericardial effusion. Normal diameter aorta. Patent central airways. Nonspeci fic mosaic attenuation throughout the lungs. No pathologically enlarged lymph nodes by size criteria. No pneumothorax, pleural effusion, or focal consolidation. No suspicious pulmonary nodule/mass. No acute findings within the visualized upper abdomen. No acute osseous abnormality. IMPRESSION: 1. No main pulmonary embolus. Lobar and segmental vessels cannot be accurately evaluated as above. 2. Nonspecific mosaic attenuation throughout the lungs, which in part may be secondary to excretory phase of scan/atelectasis. Broad diagnostic considerations include obstructive small airways disease, parenchymal disease and/or chronic vascular disease. 3. Mild cardiomegaly.
[2019-06-13] MEDS ORDERED: MUCINEX PO PRN (10:33)
[2019-06-13] MEDS ORDERED: PROAIR HFA (SINGLE PATIENT USE) IH PRN (10:33)
[2019-06-13] MEDS ORDERED: DITROPAN XL PO SCH (11:00)
[2019-06-13 11:26] VITALS: BMI 62.4
[2019-06-13] MEDS: ROCEPHIN 1 GM/50 ML D5W 1 GM/50 ML BAG IV SCH (11:47)
[2019-06-13] MEDS: SODIUM CHLORIDE 1,000 ML IV SCH (11:48)
[2019-06-13] MEDS: NEURONTIN PO SCH ×2 (16:07→20:57)
[2019-06-14] MEDS: SODIUM CHLORIDE 1,000 ML IV SCH ×2 (01:14→14:10)
[2019-06-14] MEDS: PAXIL PO SCH ×2 (02:20→20:25)
[2019-06-14] MEDS: SYNTHROID PO SCH (05:48)
[2019-06-14] MEDS: PRILOSEC PO SCH (05:48)
[2019-06-14] MEDS: FERROUS SULFATE PO SCH (05:49)
[2019-06-14 06:35] LABS: HEMATOCRIT 43.1 % (37.0-47.0)
[2019-06-14] MEDS: ZESTRIL PO SCH (08:15)
[2019-06-14] MEDS: NEURONTIN PO SCH ×3 (08:15→20:26)
[2019-06-14] MEDS: ROCEPHIN 1 GM/50 ML D5W 1 GM/50 ML BAG IV SCH (08:16)
[2019-06-14] MEDS ORDERED: NON-FORMULARY MEDICATION (Ferrous Sulfate [Iron] 325 MG) PO SCH (09:00)
[2019-06-14] MEDS ORDERED: NON-FORMULARY MEDICATION (Omeprazole Magnesium [Prilosec Otc] 20 MG) PO SCH (09:00)
[2019-06-14] MEDS ORDERED: LEVOTHYROXINE 300 MCG PO SCH (09:00)
[2019-06-14] MEDS ORDERED: PAXIL PO SCH (09:00)
[2019-06-14] MEDS ORDERED: ZOCOR PO SCH (17:00)
[2019-06-14] MEDS ORDERED: PULMICORT 0.5 MG/2 ML NEB ONE (17:58)
[2019-06-14] MEDS: PULMICORT 0.5 MG/2 ML NEB SCH (18:00)
[2019-06-14] MEDS: ZOCOR PO SCH (20:26)
[2019-06-14] MEDS: DITROPAN XL PO SCH (20:26)
[2019-06-15] MEDS: SODIUM CHLORIDE 1,000 ML IV SCH ×2 (02:17→15:33)
[2019-06-15] MEDS: PULMICORT 0.5 MG/2 ML NEB SCH ×2 (04:45→17:44)
[2019-06-15] MEDS: SYNTHROID PO SCH (05:45)
[2019-06-15] MEDS: FERROUS SULFATE PO SCH (05:45)
[2019-06-15] MEDS: PRILOSEC PO SCH (05:45)
[2019-06-15 06:38] LABS: HEMATOCRIT 40.9 % (37.0-47.0)
[2019-06-15] MEDS: NEURONTIN PO SCH ×3 (08:54→20:27)
[2019-06-15] MEDS: ZESTRIL PO SCH (08:55)
[2019-06-15] MEDS: ROCEPHIN 1 GM/50 ML D5W 1 GM/50 ML BAG IV SCH (08:56)
[2019-06-15] MEDS: DITROPAN XL PO SCH (20:27)
[2019-06-15] MEDS: PAXIL PO SCH (20:27)
[2019-06-15] MEDS: ZOCOR PO SCH (20:27)
[2019-06-16] MEDS: PRILOSEC PO SCH (05:42)
[2019-06-16] MEDS: FERROUS SULFATE PO SCH (05:42)
[2019-06-16] MEDS: SYNTHROID PO SCH (05:42)
[2019-06-16] MEDS: SODIUM CHLORIDE 1,000 ML IV SCH ×2 (05:43→19:40)
[2019-06-16] MEDS: PULMICORT 0.5 MG/2 ML NEB SCH ×2 (05:45→17:54)
[2019-06-16] MEDS: ZESTRIL PO SCH (09:41)
[2019-06-16] MEDS: NEURONTIN PO SCH ×3 (09:41→20:38)
[2019-06-16] MEDS: ROCEPHIN 1 GM/50 ML D5W 1 GM/50 ML BAG IV SCH (09:41)
[2019-06-16] MEDS: PAXIL PO SCH (20:38)
[2019-06-16] MEDS: ZOCOR PO SCH (20:38)
[2019-06-16] MEDS: DITROPAN XL PO SCH (20:38)
[2019-06-17] MEDS: PULMICORT 0.5 MG/2 ML NEB SCH (04:50)
[2019-06-17] MEDS: PRILOSEC PO SCH (06:06)
[2019-06-17] MEDS: FERROUS SULFATE PO SCH (06:06)
[2019-06-17] MEDS: SYNTHROID PO SCH (06:12)
[2019-06-17] MEDS: ZESTRIL PO SCH (08:42)
[2019-06-17] MEDS: NEURONTIN PO SCH (08:42)
[2019-06-17] MEDS ORDERED: ROCEPHIN 1 GM/50 ML D5W 1 GM/50 ML BAG IV SCH (09:00)
[2019-06-17 10:28] VITALS: BP 126/80; TEMP 97.9
--- NOTE | 2019-06-17 12:04 | DI ---
EXAM: Chest PA and lateral HISTORY: Shortness of air. COMPARRISON: 06/13/2019 FINDINGS: The heart is again mildly enlarged. Pulmonary vascularity is within normal limits. No foc al airspace opacity or pleural effusion is seen. Prominent pleural fat is again seen bilaterally. O sseous structures are unremarkable. IMPRESSION: Cardiomegaly. No acute chest findings.
--- NOTE | 2019-06-22 14:43 | PN ---
DATE OF SERVICE: 06/17/19 SUBJECTIVE: This is a 48 year old female who was admitted to the hospital because of shortness of breath and wheezing. The patient had asthma. Her chest x-ray showed maybe some pneumonic process however the CTA does not show any pulmonary emboli and no pneumonic processes. The patient was prescribed antibiotics as well as bronchodilators. The patient was later given Pulmicort 0.5mg per nebulizer twice a day. The patient's wheezing has resolved since about two days prior to discharge. The patient yesterday had some hypoxemia but she was dozing off. She does tell me that she has this episode of going to sleep and waking up suddenly and gasping. She had not used her CPAP for some time. I told her that she needed that CPAP because she would always have that hypoxemia and that was reason why she was given a CPAP. She told me that the heating element according to her is not functioning. I did tell them to call Dr. Herrera and go see Dr. Herrera so he can order or call the supplier. They had the name of the supplier and I told them that they will be able to deliver that most of the time on the same day. If they have it one can also go to their facility and bring the CPAP machine as well as the other components. The patient today is alert and oriented times 4, not dyspneic or tachypneic. Oxygen concentration is at 95-98%. She doesn't have any chest pain or abdominal pain. LUNGS: Clear to auscultation in both sides with no wheezing. The patient initially on admission had wheezing in the right upper posterior chest. HEART: Audible and regular with good tones. NECK: No masses and no bruit LOWER EXTREMITIES: The toes have a dusky color. I had demonstrated this discoloration yesterday. I elevated her foot and the discoloration has improved remarkably. I told her that the discoloration is secondary to the blood that is pulled down and not able to come back. She needs to elevate the legs. She also needed to lose weight and I did tell her a simpler diet which is vegetables or salad or steamed vegetables plus 6 ounces of meat, lunch and supper time. Breakfast will be oats plus maybe an egg. It would be helpful to her medical condition if she can lose weight. It will help very much with sleep apnea problems. Again it is mandatory that she uses her CPAP. She was prescribed Pulmicort 600mcg per inhalation twice a day and may reduce it to once a day if she does not have any episode of asthma. She needs to rinse her mouth very thoroughly after each inhalation. The patient showed good understanding as well as the and her son. LAKESHIA
--- NOTE | 2019-08-23 07:04 | DS ---
DATE OF SERVICE: 06/17/19 FINAL DIAGNOSES: 1. BILATERAL PNEUMONITIS, RESOLVED. 2. ACUTE HYPOXEMIA, RESOLVED SECONDARY TO #1. 3. ASTHMA WITH ACUTE EXACERBATION, RESOLVED. 4. HISTORY OF OBSTRUCTIVE SLEEP APNEA ON CPAP BUT NOT USING FOR SOME TIME BECAUSE OF FAULTY HEATING ELEMENT. 5. HISTORY OF POLYCYSTIC OVARIAN SYNDROME (PCOS). 6. MARKEDLY ELEVATED BMI 61. 7. 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 8. HISTORY OF GERD. 9. HISTORY OF HYPOTHYROIDISM, REPLACED. BRIEF HISTORY OF PRESENT ILLNESS/HOSPITAL COURSE: 48-year-old female who is known to have asthma with obstructive sleep apnea and markedly elevated BMI, was admitted to the hospital because of shortness of breath increasing with cough and wheezing. Chest x-ray at the emergency room on admission showed what appeared to be infiltrates bilaterally consistent with mild pulmonary vascular congestion or interstitial edema or pneumonia. CTA does not indicate any pulmonary emboli but does indicate some abnormalities in the lung. Broad diagnostic considerations include obstructive small airway disease, parenchymal disease, probably pneumonia and chronic vascular disease. Mild cardiomegaly. The patient on admission was wheezing both inspiratory and expiratory and continued through the next two days. The patient was continued on all her home medications and added medication during this admission consisting of Rocephin 1 gm intravenously daily and Pulmicort 0.5 mg/nebulizer twice a day. The patient's appetite has been good. Vital signs, mainly blood pressure normal and the patient remained afebrile throughout her hospital stay. Respiratory rate had remained slightly elevated but had returned to normal on the day of discharge between 18 to 20. Oxygen saturation also had improved from the day before discharge to 98 to 95 on 2L oxygen and sometimes without. The patient's wheezing has resolved and heart was normal sinus rhythm. A chest x-ray was repeated on the day of discharge showing no acute pulmonary findings. Cardiomegaly is persistent. The patient, at time of discharge, is alert, ambulatory with movement of both upper and lower extremities with no differential weakness and no tenderness in the calf muscles and Ryan's sign was negative. Her vital signs at 10 o'clock in the morning on 06/17/19 discharged day, showed a temperature of 97.9, blood pressure 126/80, pulse 69, respiratory rate 18, oxygen saturation 95 on room air. The patient was advised to resume using the CPAP however she mentioned that she had not used it for some time since the heating element was out of order according to her . I did advise him to get in touch with the supplier and tell them about what was defective in her CPAP machine. If they are not able to do that, they should probably contact Dr. Herrera, who may be able to help them with that regard. GENERAL: The patient is alert, not dyspneic or tachypneic at discharge, oriented times four. HEENT: Face is symmetrical and equal. No facial weakness. NECK: No masses, no bruit. LUNGS: Clear to auscultation in both sides and no wheezing, no rales. HEART: Normal sinus rhythm. EXTREMITIES: Toes are dusky when they are hanging by the bedside and I had demonstrated that the discoloration is secondary to venous insufficiency or lack of blood return with dependency. I did ask her to lay down so I raised the legs and the discoloration has disappeared. PLAN: I advised her that she has prediabetes and her blood sugar is slightly elevated and her A1C also previously was slightly elevated. She is on Metformin and probably because of the polycystic ovarian syndrome as well as the diabetes. Her fasting insulin is elevated beyond the upper normal. I did advise her to eat a diet that is low in monosaccharides meaning no sugar, no bread, no pasta, no white potato. Diet should be mostly vegetables, meat or fish. The patient was instructed to resume all her medications and she was prescribed Pulmicort Flexhaler 180 mcg/actuation two puffs twice a day. She was instructed to rinse her mouth every time she gives herself the medication. The patient did show good understanding as well as the and the patient was instructed to get in touch with Dr. Dio Herrera for her followup. Again, she is instructed to see Dr. Herrera for followup, return to the emergency room if she is has an acute exacerbation. TIME SPENT: GREATER THAN 30 MINUTES MTDD
--- NOTE | 2019-08-23 11:24 | HP ---
DATE OF SERVICE: 06/13/19 CHIEF COMPLAINT: Shortness of breath HISTORY OF PRESENT ILLNESS: 48 year old female who presented to the emergency room because of increasing shortness of breath was evaluated by the emergency room physician. The patient had cough, shortness of breath and wheezing. Chest x-ray showed findings compatible with bilateral pneumonitis. Arterial blood gasses showed severe hypoxemia with a pO2 of 51, oxygen saturation of 88%, pCO2 38, pH 7.463, FiO2 21. CTA was done and large pulmonary vessels visualized was negative for pulmonary emboli. It also indicated some parenchymal disease which probably equals pneumonia. The patient was then admitted because of pneumonitis as well as severe hypoxemia and acute asthmatic exacerbation. PAST MEDICAL HISTORY: The patient is known to have asthma GERD Dyslipidemia Hypothyroidism Polycystic ovary Obstructive sleep apnea on CPAP but not using The patient was not a smoker. PAST SURGICAL HISTORY: She did have some musculoskeletal surgery FAMILY HISTORY: Mother had depression as well as hypertension Father suffered from depression although not categorized with a 1 or 2. Grandmother and grandfather also suffered from depression. Paternal grandmother had carcinoma of the lung Other relatives had bipolar 1 disorder, polycystic ovarian syndrome, Obstructive apnea SOCIAL HISTORY: The patient is , Nonsmoker and denies any alcohol use. The patient resides with her . MEDICATIONS: Mucinex 1,200mg LA twice daily Levothyroxine 300mcg tablet daily Lisinopril 5mg daily Metformin 500mg twice a day Multivitamin with Calcium ([employer]) one tablet daily Omeprazole 20mg daily Oxybutynin 10mg daily Paxil 40mg tablet daily Simvastatin 40mg orally daily ProAir HFA two puffs every 4 hours PRN B complex vitamin C and folic acid daily Gabapentin 300mg three times a day Epipen 0.3mg for emergency injection Ferrous sulfate 325mg tablet daily Super cranberry one capsule ALLERGIES/ADVERSE REACTIONS: Celexa Bee Venom Wasp sting REVIEW OF SYSTEMS: CONSTITUTIONAL: The patient denies any fever or chills. Some fatigue with the dyspnea and wheezing and cough. No headaches. No ataxia. No dizziness. VISUAL: Denies any blurred vision, double vision or transient loss of vision. AUDITORY: Denies any pain, drainage or significant hearing loss RESPIRATORY: The patient has cough, shortness of breath with wheezing. The patient is also known to have obstructive sleep apnea on CPAP but the mask is defective. CARDIOVASCULAR: Denies anterior chest pain or oppression, diaphoresis or nausea. GI: No nausea, anorexia or dysphagia or abdominal pain. : Denies any pain, frequency of urination. This patient is on Ditropan. MUSCULOSKELETAL: Some pain in the knee from time to time. ENDOCRINE: The patient does not have any polydipsia or polyuria. The patient however most likely has stress incontinence because she is taking Ditropan or maybe Urgency. She does not have that at this time. HEMATOLOGY: The patient denies any prolonged bleeding or continuous bleeding. PSYCHIATRIC: The patient's affect is normal. She is cooperative although has history of depression and also history of depression in the family. PHYSICAL EXAMINATION: GENERAL: 48 year old female patient of Dr. Danial Herrera was seen at the emergency room because of cough, shortness of breath and wheezing with marked hypoxemia was admitted to the hospital for the above problems and the chest x-ray showing bilateral pneumonia and CT does not indicate pulmonary emboli although the small arterial tree could not be visualized. VITAL SIGNS: Temperature 99.4, blood pressure 160/97, pulse 98, respiratory rate 28, oxygen saturation 90. 5'6.5 inches. 183 pounds 12.8 ounces. BMI 61. CONSTITUTIONAL: The patient is alert and responsive, oriented, somewhat tachypneic. No cyanosis with nasal oxygen. HEAD: Unremarkable. Scalp has no active dermatitis FACE: Symmetrical and equal with no facial weakness and no significant tenderness to palpation under pressure in the frontal maxillary sinus areas. MOUTH: unremarkable THROAT: No significant abnormalities noted. NECK: Short, no masses and no bruit CHEST: Essentially symmetrical and equal with acceptable expansion LUNGS: Breath sounds are diminished on both sides with inspiratory and expiratory wheezing. HEART: Audible and regular with good tones and no murmurs. ABDOMEN: Markedly protuberant with no significant tenderness. No masses palpable although very difficult for the size. Bowel sounds are active. No bruit. EXTERNAL GENITALIA: Not examined RECTAL: Not performed LOWER EXTREMITIES: Symmetrical and equal with some leg edema as well as ankles. Anterior tibial pulses were palpable. UPPER EXTREMITIES: Symmetrical and equal. ASSESSMENT: 1. Bilateral pneumonitis 2. Acute respiratory failure probably secondary to #1 3. Asthma with exacerbation 4. Obstructive sleep apnea on CPAP, not using it 5. Markedly elevated BMI, 61 6. History of GERD 7. History of Dyslipidemia 8. History of hypothyroidism on replacement therapy 9. History of polycystic ovarian syndrome on medication 10.Probable insulin resistant syndrome TIME SPENT: GREATER THAN 65 MINUTES MTDD
--- NOTE | 2019-08-30 11:21 | PN ---
DATE OF SERVICE: 06/16/19 SUBJECTIVE: The patient today is alert and in no respiratory distress. HEART: Audible and regular with good tones. LUNGS: Clear to auscultation although this patient had an episode of hypoxemia yesterday. She does go to sleep in a semi recumbent position and wakes up suddenly with gasping for breath. I do believe that this is probably part of the obstructive sleep apnea that this individual has. VITAL SIGNS: Temperature 97.8, blood pressure 136/89, pulse 93, respiratory rate 22 and oxygen saturation 90% at 2 liters of oxygen although the patient sometimes doesn't use the nasal oxygen. The patient is still receiving the Rocephin 1 gram intervenously daily as well as the Pulmicort 0.5mg per nebulizer. She denies any pain or tenderness in both calf muscles. JAIMED
--- NOTE | 2019-08-30 11:30 | PN ---
DATE OF SERVICE: 06/15/2019 SUBJECTIVE: The patient today is alert and feeling better. She denies any chest pain or abdominal pain and the shortness of breath has decreased remarkably. Her Temperature 98, blood pressure is 122/66 at 6pm on 06/15/19, pulse 48 probably not counted well since the other pulses are much higher, Respiratory rate was not counted at that time but done 7:43pm and was 22 per minute and oxygen saturation was 93% with 2 liters. CBC now shows a lower WBC 11,860 from 15,810. The neutrophil now has returned to normal 6.6. Sodium, Potassium and Chlorides are all normal. Co2 has risen slightly 233.6. The blood sugar is down to 109.4. The rest of the chemistries were normal. LUNGS: No wheezing. Inspiratory or expiratory HEART: Normal sinus rhythm ABDOMEN: Nontender This patient is receiving Rocephin 1mg intervenously daily. CONDITION: Improved MTDD
--- NOTE | 2019-08-30 13:17 | PN ---
DATE OF SERVICE: 06/14/2019 SUBJECTIVE: The patient today 06/14/19 is alert still on 2 liters of nasal oxygen. She is afebrile at 5:57pm. Temperature 98.7, blood pressure 108/69, pulse 76, respiratory rate 16, oxygen saturation 96 at 2 liters of oxygen. The patient claims that she is somewhat better. She still some inspiratory and expiratory wheezing but less. This patient was given 125mg of Solu-Medrol at the emergency room. The patient since then was given Pulmicort 0.5mg per nebulizer twice a day. CBC today showed increasing WBC from 13,500 to 15,810. This was probably secondary to the Solu-Medrol that was given. The rest of the CBC essentially the same as yesterday. Carbon dioxide is slightly lower than yesterday now 31.7 from 32.2. Sugar is 152.5. The patient's blood sugar in the emergency room was 146.4. The A1c done previous was 6.3. Insulin level done on the blood from 06/13/19 was 65.8 and the upper normal is 23. Rest of the chemistries were unremarkable. CONDITION: Stable and Improved. Influenza is borderline 1:8. MTDD
== END 2019-06-17 13:15 | disposition home or self-care (01) ==
LOC: MEDSURG B 05:49 → ED 05:49 → MEDSURG B 11:08
PROVIDERS: ADMIT General Practice; ATTEND General Practice
DX: J45.901 Unspecified asthma with (acute) exacerbation; R06.02 Shortness of breath; K21.9 Gastro-esophageal reflux disease without esophagitis; E03.9 Hypothyroidism, unspecified; R07.89 Other chest pain; E78.5 Hyperlipidemia, unspecified; E66.9 Obesity, unspecified; Z79.899 Other long term (current) drug therapy; G47.33 Obstructive sleep apnea (adult) (pediatric)